=== PATIENT | male | born 1980 | race Caucasian/White ===

== ENCOUNTER → 2021-08-03 | Outpatient (CLI) | payer BC ==
[2021-08-03 13:05] LABS: Appearance,Urine Clear (Clear); Bilirubin,Urine Negative (Negative); Blood,Urine Negative (Negative); Color,Urine Yellow; Glucose,Urine (UA) Negative (Negative); Ketones,Urine Negative (Negative); Leukocyte Esterase,Urine Negative (Negative); Nitrite,Urine Negative (Negative); PH, Urine 5.5 (5.0-8.0); Protein,Urine Negative (Negative); Specific Gravity,Urine 1.013 (1.001-1.035); Urobilinogen,Urine <2.0 mg/dL (<2.0)
[2021-08-03 19:11] LABS: Basophils # (A) 0.02 X 10*3/uL (0.00-0.10); Basophils % (A) 0.5 %; Eosinophils # (A) 0.04 X 10*3/uL (0.04-0.35); HCT 43.7 % (39.6-50.0); HGB 14.8 g/dL (13.0-17.0); Lymphocytes # (A) 1.06 X 10*3/uL (0.90-5.00); Lymphocytes % (A) 27.8 %; MCH 29.7 pg (27.0-32.0); MCHC 33.9 g/dL (32.0-37.0); MCV 87.6 fL (80.0-97.0); Mean Platelet Volume 11.5 fL (9.5-12.2); Monocytes # (A) 0.25 X 10*3/uL (0.20-1.00); Monocytes % (A) 6.6 %; Neutrophils # (A) 2.43 X 10*3/uL (1.80-7.70); Neutrophils % (A) 63.8 %; Platelet Count 191 X 10*3/uL (140-440); RBC 4.99 X 10*6/uL (4.40-5.60); RDW 12.9 % (11.5-14.5); WBC 3.81 X 10*3/uL (4.50-10.00)
[2021-08-04 13:04] LABS: Chol/HDL Ratio 4.29 Ratio; HDL Cholesterol 68.1 mg/dL (40.00-60.00); LDL Cholesterol,Calculated 209.5 mg/dL (0.0-131.0); Triglycerides 72.2 mg/dL (0.00-149.00); Uric Acid 7.8 mg/dL (3.7-8.7); VLDL Calculation 14.44 mg/dL (5.00-40.00)
[2021-08-04 21:29] LABS: African American GFR (CKD) 121.2 (60.0-200.0); Albumin 4.8 g/dL (3.8-4.9); Albumin/Globulin Ratio 2.07 (1.60-3.17); Anion Gap 18.1 mmol/L (4.00-12.00); BUN/Creat Ratio 16.34 Ratio (12.00-20.00); Blood Urea Nitrogen 15.1 mg/dL (9.0-27.0); Calcium 9.8 mg/dL (8.7-10.3); Carbon Dioxide 19.3 mmol/L (21.6-31.8); Globulin 2.3 g/dL (1.6-3.3); Non-African American GFR(CKD) 104.6 (60.0-200.0); Potassium 4.2 mmol/L (3.5-5.5); Total Bilirubin 0.6 mg/dL (0.30-1.20); Total Protein 7.2 g/dL (6.2-8.2)
== END | disposition home or self-care (01) ==
LOC: LABWHC1 11:59
PROVIDERS: ATTEND Family Medicine
DX: Z00.00 Encounter for general adult medical examination without abnormal findings (principal); M10.9 Gout, unspecified
CPT/HCPCS: 36415; 80053; 80061; 81003; 82306; 83036; 84443; 84550; 85025

== ENCOUNTER → 2021-08-15 | Outpatient (CLI) | payer BC ==
[2021-08-15 18:51] LABS: HCT 46.3 % (39.6-50.0); HGB 15.3 g/dL (13.0-17.0); MCH 29.3 pg (27.0-32.0); MCV 88.7 fL (80.0-97.0); Mean Platelet Volume 11.8 fL (9.5-12.2); Platelet Count 191 X 10*3/uL (140-440); RBC 5.22 X 10*6/uL (4.40-5.60); RDW 12.8 % (11.5-14.5); WBC 4.72 X 10*3/uL (4.50-10.00)
[2021-08-15 19:50] LABS: African American GFR (CKD) 123.6 (60.0-200.0); Anion Gap 13.9 mmol/L (4.00-12.00); BUN/Creat Ratio 18.81 Ratio (12.00-20.00); Blood Urea Nitrogen 17.1 mg/dL (9.0-27.0); Calcium 9.9 mg/dL (8.7-10.3); Carbon Dioxide 25.9 mmol/L (21.6-31.8); Chol/HDL Ratio 4.12 Ratio; HDL Cholesterol 74.7 mg/dL (40.00-60.00); LDL Cholesterol,Calculated 213.6 mg/dL (0.0-131.0); Non-African American GFR(CKD) 106.7 (60.0-200.0); Potassium 4.3 mmol/L (3.5-5.5); Triglycerides 98.3 mg/dL (0.00-149.00); VLDL Calculation 19.66 mg/dL (5.00-40.00)
== END | disposition home or self-care (01) ==
LOC: LABWHC1 12:27
PROVIDERS: ATTEND Family Medicine
DX: Z00.00 Encounter for general adult medical examination without abnormal findings (principal)
CPT/HCPCS: 36415; 80048; 80061; 85027

== ENCOUNTER 2024-09-11 17:25 | Emergency (ER) | payer BC, MEDICAID ==
[2024-09-11 17:53] VITALS: PULSE 57; TEMP 97.9
[2024-09-11] MEDS: AMOXIC-POT CLAV 875-125MG 1 EACH TAB PO STA (18:44)
[2024-09-11] MEDS: DIPH,PERTUS(ACELL)TETVAC-LF 0.5 ML VIAL IM ONE (18:45)
--- NOTE | 2024-09-11 19:09 | ED ---
Animal Bite HPI - General Chief Complaint: Animal Bite Stated Complaint: R hand animal bite Time Seen by Provider: 09/11/24 18:21 Source: patient Mode of arrival: ambulatory - History of Present Illness Initial Comments: 43-year-old male presenting with chief complaint of dog bite. Patient was outside when he was bitten by a stray dog on the right hand at around 1715. He has 2 puncture wounds to the dorsal surface of the hand and an abrasion to the thumb. He has full range of motion and normal sensation. Does not remember when his last tetanus was. - Related Data Previous Rx's Medication Instructions Recorded Amoxic-Pot Clav 875-125Mg 1 tab PO Q12HR 7 Days #14 tab 09/11/24 [Augmentin 875-125] Allergies Allergy/AdvReac Type Severity Reaction Status Date / Time No Known Allergies Allergy Verified 09/11/24 17:53 Review of Systems ROS Statement: Those systems with pertinent positive or pertinent negative responses have been documented in the HPI. ROS Other: All systems not noted in ROS Statement are negative. Past Medical History Past Medical History: No Reported History History of Any Multi-Drug Resistant Organisms: None Reported Past Surgical History: No Surgical Hx Reported Past Psychological History: No Psychological Hx Reported Smoking Status: Never smoker Past Alcohol Use History: None Reported Past Drug Use History: None Reported General Exam General appearance: alert, in no apparent distress Head exam: Present: atraumatic, normocephalic, normal inspection Eye exam: Present: normal appearance, EOMI Neck exam: Present: normal inspection. Absent: meningismus Respiratory exam: Absent: respiratory distress Right Hand Wrist exam: Present: full ROM, abrasion, laceration (2 punctures) Vascular: Present: radial pulse (2+; full sensation, no weakness). Absent: vascular compromise Neurological exam: Present: alert, oriented X3 Psychiatric exam: Present: normal affect, normal mood Course Vital Signs 09/11/24 09/11/24 09/11/24 17:48 20:15 20:21 Temperature 97.9 F 97.9 F 97.9 F Pulse Rate 57 L 57 L 57 L Respiratory 18 19 19 Rate Blood Pressure 127/80 121/74 121/74 O2 Sat by Pulse 98 98 98 Oximetry Medical Decision Making - Medical Decision Making Was pt. sent in by a medical professional or institution (, PA, [employer]ACH[employer], urgent care, hospital, or care home...) When possible be specific @ -No Did you speak to anyone other than the patient for history (EMS, parent, family, police, friend...)? What history was obtained from this source @ -No Did you review nursing and triage notes (agree or disagree)? Why? @ -I reviewed and agree with nursing and triage notes Were old charts reviewed (outside hosp., previous admission, EMS record, old EKG, old radiological studies, urgent care reports/EKG's, care home records)? Report findings @ -No old charts were reviewed Differential Diagnosis (chest pain, altered mental status, abdominal pain women, abdominal pain men, vaginal bleeding, weakness, fever, dyspnea, syncope, headache, dizziness, GI bleed, back pain, seizure, CVA, palpatations, mental health, musculoskeletal)? @ -Differential includes uncomplicated puncture wound, fracture, nerve injury, vessel injury, this is not an all-inclusive list EKG interpreted by me (3pts min.). @ -As above X-rays interpreted by me (1pt min.). @ -X-ray shows no acute osseous abnormality CT interpreted by me (1pt min.). @ -None done U/S interpreted by me (1pt. min.). @ -None done What testing was considered but not performed or refused? (CT, X-rays, U/S, labs)? Why? @ -None What meds were considered but not given or refused? Why? @ -None Did you discuss the management of the patient with other professionals (professionals i.e. , PA, [employer], lab, RT, psych nurse, social media marketing manager, isotope technologist, teacher, nursing officer, assistant case manager)? Give summary @ -No Was smoking cessation discussed for >3mins.? @ -No Was critical care preformed (if so, how long)? @ -No Were there social determinants of health that impacted care today? How? (Homelessness, low income, unemployed, alcoholism, drug addiction, transportation, low edu. Level, literacy, decrease access to med. care, intermediate, rehab)? @ -No Was there de-escalation of care discussed even if they declined (Discuss DNR or withdrawal of care, Hospice)? DNR status @ -No What co-morbidities impacted this encounter? (DM, HTN, Smoking, COPD, CAD, Cancer, CVA, ARF, Chemo, Hep., AIDS, mental health diagnosis, sleep apnea, morbid obesity)? @ -None Was patient admitted / discharged? Hospital course, mention meds given and route, prescriptions, significant lab abnormalities, going to OR and other pertinent info. @ -43-year-old male presenting with chief complaint of dog bite. Occurred earlier this evening by a stray dog. Patient's tetanus is updated today. He is neurovascularly intact bleeding is well-controlled and he has full range of motion of the right hand. X-rays negative for fracture. The wounds are thoroughly irrigated and patient is started on Augmentin. Educated on wound care and signs of infection. Discharged. Follow-up with PCP. Report back to ER with any new or worsening symptoms. Discussed return parameters and answered all questions. Patient conveyed verbal understanding and agreed to the plan. I discussed this case in detail with my attending Dr. Berry Undiagnosed new problem with uncertain prognosis? @ -No Drug Therapy requiring intensive monitoring for toxicity (Heparin, Nitro, Insulin, Cardizem)? @ -No Were any procedures done? @ -No Diagnosis/symptom? @ -Dog bite Acute, or Chronic, or Acute on Chronic? @ -Acute Uncomplicated (without systemic symptoms) or Complicated (systemic symptoms)? @ -Uncomplicated Side effects of treatment? @ -No Exacerbation, Progression, or Severe Exacerbation? @ -No Poses a threat to life or bodily function? How? (Chest pain, [place], [place], pneumonia, PE, COPD, DKA, ARF, appy, cholecystitis, CVA, Diverticulitis, Homicidal, Suicidal, threat to staff... and all critical care pts) @ -Unlikely Disposition Clinical Impression: Dog bite Disposition: HOME SELF-CARE Condition: Good Instructions (If sedation given, give patient instructions): Animal Bite (ED) Additional Instructions: Follow-up with PCP. Report back to ER with any new or worsening symptoms. Take medication as prescribed. Keep the wound clean dry and covered. Wash daily with soap and water. Change the dressing daily. Monitor for signs of infection, including but not limited to redness, swelling, warmth, tenderness, discharge. Prescriptions: Amoxic-Pot Clav 875-125Mg [Augmentin 875-125] 1 tab PO Q12HR 7 Days #14 tab Is patient prescribed a controlled substance at d/c from ED?: No Referrals: Hilton Zafar DO [Primary Care Provider] - 1-2 days Time of Disposition: 19:20
--- NOTE | 2024-09-11 19:17 | XR ---
EXAMINATION TYPE: XR hand complete RT DATE OF EXAM: 09/11/2024 7:07 PM COMPARISON: Previous right wrist radiograph dated 03/09/2010. CLINICAL INDICATION: Male, 43 years old with history of dog bite; [facility] TECHNIQUE: XR hand complete RT Frontal, lateral and oblique views were obtained. FINDINGS: No acute fracture or dislocation. No evidence for radiopaque foreign body. No focal osseous erosion or periosteal reaction. Carpal alignment appears maintained. IMPRESSION: No acute osseous abnormality. [facility], , 09/11/2024 7:15 PM
[2024-09-11 20:21] VITALS: BP 121/74; RESP 19
== END 2024-09-11 20:22 | disposition home or self-care (01) ==
LOC: EC 17:25
DX: S61.451A Open bite of right hand, initial encounter (principal); Z23 Encounter for immunization; W54.0XXA Bitten by dog, initial encounter
CPT/HCPCS: 90471; 90715; 99283